=== PATIENT | female | born 2000 | race African-American/Black ===

== ENCOUNTER 2024-04-21 07:45 | Emergency (ER) | payer BC, SELFPAY ==
[2024-04-21 07:52] VITALS: BP 144/98; PULSE 83; TEMP 36.7; O2SAT 100
[2024-04-21 08:29] LABS: Bilirubin Urine NEGATIVE (NEGATIVE); Blood Urine NEGATIVE (NEGATIVE); Clarity Urine CLEAR (CLEAR); Color Urine LT. YELLOW (YELLOW); Glucose Urine UA NEGATIVE (NEGATIVE); Ketones Urine NEGATIVE (NEGATIVE); Leukocyte Esterase Urine NEGATIVE (NEGATIVE); Nitrite Urine NEGATIVE (NEGATIVE); Protein Urine NEGATIVE (NEG/TRACE); Urobilinogen Urine 0.2 EU/dL (0.2-1.0)
[2024-04-21 08:40] LABS: HCG Qualitative Urine* POSITIVE (NEGATIVE); Internal Control Within Normal Limits
[2024-04-21 08:41] LABS: Urine Microscopic Indicated NO
--- NOTE | 2024-04-21 09:00 | ED_ITS ---
HPI - Female Genitourinary General Chief complaint: Urogenital-Female Stated complaint: GENERAL WEAKNESS Time Seen by Provider: 04/21/24 08:04 Source: patient Mode of arrival: walk-in Limitations: no limitations History of Present Illness HPI Narrative: Patient is here with lesions in her genital area. She is visiting from [place] and will be returning there soon. She also admits to some vaginal discharge. She states that she is with the father of her children now but approximately year ago he was treated for herpes. She does not know if he has had any recurrences or not. She has not had fever shakes or chills. She tested for home test recently and it was positive. She is not having any vaginal bleeding or spotting. She says that she has not previously had any herpes or other STDs. Does not have any back or flank pain. Related Data Home Medications ?Medication ?Instructions ?Recorded ?Confirmed No Known Home Medications 04/21/24 04/21/24 Allergies Allergy/AdvReac Type Severity Reaction Status Date / Time No Known Drug Allergies Allergy Verified 04/21/24 07:52 PFSH PFSH Social History Little interest or pleasure in doing things: not at all Feeling down, depressed, or hopeless: not at all Exam Narrative Exam Narrative: Well-hydrated well-nourished very pleasant young lady. Vital signs are stable. She is emotionally distraught. In the presence of a nurse a pelvic examination showed that she does have classic vesicles and ulcerated lesions on the labia at the 2 o'clock position and a little bit inferior to that area as well. Viral cultures and vaginosis cultures were done. She does have some vaginal discharge at this time. She does not have any abdominal pain or discomfort. Constitutional Vital Signs, click to edit/add: Last Vital Signs Temp 98.1 F 04/21/24 07:52 Pulse 83 04/21/24 07:52 Resp 18 04/21/24 07:52 BP 144/98 H 04/21/24 07:52 Pulse Ox 100 04/21/24 07:52 O2 Del Method Room Air 04/21/24 07:52 Course Vital Signs Vital signs: Vital Signs Temperature 98.1 F 04/21/24 07:52 Pulse Rate 83 04/21/24 07:52 Respiratory Rate 18 04/21/24 07:52 Blood Pressure 144/98 H 04/21/24 07:52 Pulse Oximetry 100 04/21/24 07:52 Oxygen Delivery Method Room Air 04/21/24 07:52 Temperature 98.1 F 04/21/24 07:52 Pulse Rate 83 04/21/24 07:52 Respiratory Rate 18 04/21/24 07:52 Blood Pressure 144/98 H 04/21/24 07:52 Pulse Oximetry 100 04/21/24 07:52 Oxygen Delivery Method Room Air 04/21/24 07:52 MDM - Female Genitourinary MDM Narrative Medical decision making narrative: This patient has classic viral herpes type lesions and will be treated accordingly. We are awaiting her test but acyclovir is to be safe during . Additionally because of vaginal discharge and possible other STDs she is opted be treated empirically for GC and chlamydia at this time. We have done amplification test and I would strongly advise her to call us for feedback on the results of those test in several days. When she returns home she should make sure that her ONLINE MARKETING DIRECTOR is aware of these issues. Additionally her male outboard system operator should be seen at their health department or family doctor when all these tests are completed on her. Lab Data Labs: Lab Results 04/21/24 Range/Units 08:20 Urine Color Lt. yellow (YELLOW) Urine Clarity Clear (CLEAR) Urine pH 6.0 (5.0-9.0) Ur Specific [place] 1.020 (1.005-1.025) Urine Protein Negative (NEG/TRACE) mg/dL Urine Glucose (UA) Negative (NEGATIVE) mg/dL Urine Ketones Negative (NEGATIVE) mg/dL Urine Occult Blood Negative (NEGATIVE) Urine Nitrite Negative (NEGATIVE) Urine Bilirubin Negative (NEGATIVE) Urine Urobilinogen 0.2 (0.2-1.0) EU/dL Ur Leukocyte Esterase Negative (NEGATIVE) Urine HCG, Qual Positive A (NEGATIVE) Discharge Plan Discharge Chief Complaint: Urogenital-Female Clinical Impression: Herpes genitalis Patient Disposition: Home, Self-Care Time of Disposition Decision: 09:03 Prescriptions / Home Meds: No Action No Known Home Medications Print Language: Citizen [place] Additional Instructions: Call here for final test results in 3 days. Acyclovir for 10 days. Have your male outboard system operator see the health department or primary care doctor when all of your test results are completed. No sex until therapies are completed. Follow-up with your ONLINE MARKETING DIRECTOR as soon as possible Referrals: Physician,Non-Staff, MD [Primary Care Provider] - 1 week
[2024-04-21] MEDS: CEFTRIAXONE 500 MG, LIDOCAINE HCL/PF 1 ML IM (09:16)
[2024-04-21] MEDS: AZITHROMYCIN 250 MG TABLET 1000 MG PO (09:17)
[2024-04-21 09:25] VITALS: PULSE 74; O2SAT 100
[2024-04-22 09:45] LABS: BOX Test Reference Lab LABCORP
[2024-04-24 06:09] LABS: Neisseria gonorrhoeae, NAA Negative (Negative)
== END 2024-04-21 09:26 | disposition home or self-care (01) ==
PROVIDERS: Emergency Provider Emergency Medicine Emergency Medical Services
DX: A60.00 Herpesviral infection of urogenital system, unspecified (principal)
CPT/HCPCS: 36415; 81003; 84703; 87491; 87529; 87591; 87661; 87798; 87801; 99284; J0696